=== PATIENT | male | born 1945 | race Caucasian/White ===

== ENCOUNTER 2022-01-17 06:07 | Inpatient (IN) ==
--- NOTE | 2021-12-22 08:59 | PAT Medication Instructions ---
Medication Instructions Date of Service December 22, 2021 Home Medications carvedilol 3.125 mg tablet 3.125 mg PO BID metformin 1,000 mg tablet 500 mg PO BID omeprazole 20 mg capsule,delayed release 20 mg PO QPM simvastatin 20 mg tablet 20 mg PO PM diphenhydramine HCl 25 mg capsule (Benadryl) 1 cap PO HS hydrochlorothiazide 25 mg tablet 25 mg PO QAM lisinopril 40 mg tablet 40 mg PO QAM ascorbic acid (vitamin C) 1,000 mg tablet (Vitamin C) 1 g PO QAM ferrous sulfate 325 mg (65 mg iron) tablet (iron) 1 tab PO QAM levothyroxine 25 mcg capsule 75 mcg PO QAM cholecalciferol (vitamin D3) 25 mcg (1,000 unit) capsule (Vitamin D3) 25 mcg PO QAM glipizide 2.5 mg tablet, extended release 24 hr 2.5 mg PO BID methocarbamol 750 mg tablet 750 mg PO HS semaglutide (Ozempic) 0.25 mg SUBCUT WK tramadol 50 mg tablet 50 mg PO Q6H PRN vitamin B complex 1 tab PO QAM Continue as directed semaglutide (Ozempic) 0.25 mg SUBCUT WK (just do not take on morning of surgery) DO NOT take the morning of surgery metformin 1,000 mg tablet 500 mg PO BID hydrochlorothiazide 25 mg tablet 25 mg PO QAM lisinopril 40 mg tablet 40 mg PO QAM ascorbic acid (vitamin C) 1,000 mg tablet (Vitamin C) 1 g PO QAM ferrous sulfate 325 mg (65 mg iron) tablet (iron) 1 tab PO QAM cholecalciferol (vitamin D3) 25 mcg (1,000 unit) capsule (Vitamin D3) 25 mcg PO QAM glipizide 2.5 mg tablet, extended release 24 hr 2.5 mg PO BID vitamin B complex 1 tab PO QAM Take morning of surgery With a small sip of water, OTHERWISE NOTHING TO EAT OR DRINK AFTER MIDNIGHT: carvedilol 3.125 mg tablet 3.125 mg PO BID levothyroxine 25 mcg capsule 75 mcg PO QAM tramadol 50 mg tablet 50 mg PO Q6H PRN (okay to take up to 4 hours prior to surgery if needed) Take evening before surgery carvedilol 3.125 mg tablet 3.125 mg PO BID metformin 1,000 mg tablet 500 mg PO BID omeprazole 20 mg capsule,delayed release 20 mg PO QPM simvastatin 20 mg tablet 20 mg PO PM diphenhydramine HCl 25 mg capsule (Benadryl) 1 cap PO HS glipizide 2.5 mg tablet, extended release 24 hr 2.5 mg PO BID methocarbamol 750 mg tablet 750 mg PO HS tramadol 50 mg tablet 50 mg PO Q6H PRN (if needed) Other Notes If you have any questions please call us at [phone] or [phone] or [phone] or [phone]
--- NOTE | 2021-12-27 13:46 | Anesthesiology Consultation ---
Date of Service December 27, 2021 Assessment & Plan (1) Encounter for pre-operative examination: - check BSG am DOS. - will attempt to obtain previous cardiology office note and available testing records. - COVID screening: Per assessment on 12/27/2021: Travel screen negative, no known COVID-19 positive contacts or current COVID-19 related symptoms in past 2 weeks. Patient vaccinated. Surgeon arranging preop COVID testing, scheduled 01/13/2022. Awaiting results. Chart Review Chart Review: Pending: Refer to Additional Notes / Consult section and Patient seen in Pre Admission Testing Teaching & Discussion Pre-Anesthesia Teaching/Discussion Notes: Instructed NPO after midnight before surgery, except medications with 15 cc of water. Medication instructions provid ed according to the PAT guidelines. History Surgery Operation Date: 01/17/22 12:35 Proposed Procedures p Posterior Fusion Instrumentation - Emmett Abdalla, Height/Weight Height: 5 ft 7 in Weight: 90.5 kg Allergies Allergy/AdvReac Type Severity Reaction Status Date / Time hydrocodone Allergy Unknown ITCHING Verified 12/21/21 14:22 AND RASH oxycodone Allergy Unknown NAUSEA, Verified 12/21/21 14:22 ITCHING, RASH Penicillins Allergy Unknown per PCP Verified 12/21/21 14:22 note shrimp Allergy Unknown NAUSEA AND Verified 12/21/21 14:22 VOMITING Medications Home Medications Medication Instructions Recorded Confirmed Last Taken carvedilol 3.125 mg tablet 3.125 mg PO BID #0 tab 12/18/14 12/21/21 08/07/18 06:30 metformin 1,000 mg tablet 500 mg PO BID #0 tab 12/18/14 12/21/21 08/06/18 19:30 omeprazole 20 mg capsule,delayed 20 mg PO QPM #0 12/18/14 12/21/21 08/06/18 06:30 release simvastatin 20 mg tablet 20 mg PO PM #0 tab 12/18/14 12/21/21 08/06/18 07:30 diphenhydramine HCl 25 mg capsule 1 cap PO HS #0 03/25/15 12/21/21 07/31/18 22:30 (Benadryl) hydrochlorothiazide 25 mg tablet 25 mg PO QAM #0 tab 03/25/15 12/21/21 08/06/18 07:30 lisinopril 40 mg tablet 40 mg PO QAM #0 tab 03/25/15 12/21/21 07/30/18 07:30 ascorbic acid (vitamin C) 1,000 mg 1 g PO QAM 07/10/18 12/21/21 07/31/18 07:30 tablet (Vitamin C) ferrous sulfate 325 mg (65 mg 1 tab PO QAM 07/10/18 12/21/21 08/06/18 22:30 iron) tablet (iron) levothyroxine 25 mcg capsule 75 mcg PO QAM 07/10/18 12/21/21 08/07/18 06:30 cholecalciferol (vitamin D3) 25 25 mcg PO QAM 12/21/21 12/21/21 Unknown mcg (1,000 unit) capsule (Vitamin D3) glipizide 2.5 mg tablet, extended 2.5 mg PO BID 12/21/21 12/21/21 Unknown release 24 hr methocarbamol 750 mg tablet 750 mg PO HS 12/21/21 12/21/21 Unknown semaglutide (Ozempic) 0.25 mg SUBCUT WK 12/21/21 12/21/21 Unknown tramadol 50 mg tablet 50 mg PO Q6H PRN 12/21/21 12/21/21 Unknown vitamin B complex 1 tab PO QAM 12/21/21 12/21/21 Unknown Past Medical History Medical History (Updated 12/27/21 @ 16:25 by Shelley Lala PA-C) BPH (benign prostatic hyperplasia) Chronic back pain CKD (chronic kidney disease) stage 3, GFR 30-59 ml/min follows with [facility] in [place] Degenerative disc disease GERD (gastroesophageal reflux disease) controlled, stable per pt Glaucoma History of atrial fibrillation follows with Dr. Carroll in [place] HLD (hyperlipidemia) HTN (hypertension) controlled, stable per pt Hypothyroid Lumbar stenosis without neurogenic claudication (12/30/14) Obesity Prostate cancer (02/25/15) "Urinary retention post back surgery Finding of elevated PSA at 5.23 Status post prostate biopsy revealing adenocarcinoma Jackie 3+3 Biopsy staged T2b Prostate volume 34.9 Prostate density 0.149" T2DM (type 2 diabetes mellitus) NIDDM Valvular disease Probable bicuspid AV. Mild [place]. Mild [place]. Patient denies h/o stroke, seizures, heart attack, heart failure, blood clots or blood transfusions. Exercise / Class Metabolic Activity II 4-5 Yardwork/Stairs/Walk up hill (denies CP or SOB with 1 FOS) Past Family History Family History Other No family history of adverse response to anesthesia Past Surgical History Surgical History (Updated 12/27/21 @ 14:33 by Shelley Lala PA-C) Fusion of spine BACK AND CERVICAL (limited ROM side to side) History of arthroscopic surgery of shoulder History of cardiac catheterization - no stents History of carpal tunnel release History of cataract surgery BILATERAL CATARACT History of cervical spinal surgery History of discectomy History of lumbar surgery 08/08/2018: L3-S1 Removal of Instrumentation, L2-3 Decompression and Fusion. Grade 1 view, MAC#3. No issues per anesthesia postop progress note. History of nasal septoplasty History of prostatectomy 2014 History of shoulder replacement Nausea and vomiting after administration of anesthetic agent Past Anesthesia History No Hx of Anesthesia Complications and No Family Hx of Anesthesia Complications History of PONV No Hx of Motion Sickness and History of PONV Social History Smoking Status: Former smoker Do You Dip or Chew Tobacco: No Smoking End Date: quit 30+ years ago Hx Alcohol Use: No Hx Substance Use: No substance use type: does not use Review of Systems Snoring, denies witnessed apneas. He reports sleep study > 5 yrs ago negative for sleep apnea per pt. Patient denies chest pain, shortness of breath, dyspnea on exertion, fever, chills, cough, wheezing, or palpitations. Physical Exam Vital Signs Vitals BP 123/80 P 66 TEMP 98.0 SP02 96% on RA RESP 17 Physical Full cervical extension range of motion without pain Full TMJ range of motion TMD 3.5 finger breaths Mallampati Score 3 Dentition: intact, missing right upper and lower side; denies chipped or loose teeth, caps/crowns, implants or bridges Lungs: normal respiratory effort. Clear throughout to auscultation, no adventitious breath sounds Cardiac: regular rate and rhythm, no murmurs noted Carotid arteries: negative bruit bilat Extremities: no distal extremity edema Lab Results Anesthesia Preop Results Results Anesthesia Widget: WBC 10.60 K/uL (4.8-10.8) 12/27/21 Hgb 15.9 g/dL (14.0-18.0) 12/27/21 Hct 47.8 % (42-52) 12/27/21 Plt 343 K/uL (130-400) 12/27/21 Na 138 mmol/L (136-145) 12/27/21 K 4.0 mmol/L (3.5-5.1) 12/27/21 Cl 105 mmol/L (98-107) 12/27/21 CO2 25 mmol/L (21-32) 12/27/21 BUN 17 mg/dl (6-23) 12/27/21 Creat 1.29 mg/dl (0.6-1.4) 12/27/21 Glucose Level 132 mg/dl (70-99(Fasting)) H 12/27/21 PT 9.9 Seconds (9.0-12.0) 12/27/21 PTT 24.8 Seconds (21.0-31.0) 12/27/21 INR 1.0 (0.9-1.1) 12/27/21 HA1c 6.7 % (4.5-5.6) H 12/27/21 Urine Color Yellow 12/27/21 Urine Appearance Clear (Clear) 12/27/21 Urine pH 5.0 (4.5-7.5) 12/27/21 Urine Specific [place] 1.019 (1.000-1.030) 12/27/21 Urine Protein Negative (Negative) 12/27/21 Urine Glucose (UA) Negative (Negative) 12/27/21 Urine Ketones Negative (Negative) 12/27/21 Urine Blood Negative (Negative) 12/27/21 Urine Nitrite Negative (Negative) 12/27/21 Urine Bilirubin Negative (Negative) 12/27/21 Urine Urobilinogen Negative (Negative) 12/27/21 Urine Leukocyte Esterase Negative (Negative) 12/27/21 Blood Type A Positive 12/27/21 Antibody Screen NEGATIVE 12/27/21 Testing Electrocardiogram Date: 12/27/21 NSR, rate 63 bpm RBBB Chest X-Ray Date: 12/27/21 FINDINGS: Cervical spinal fusion hardware is again noted. There is a right total shoulder arthroplasty. No pneumothorax. No pleural effusions. The heart is normal in size. There is a mildly tortuous thoracic aorta, unchanged. The lungs are clear. Partially visualized lumbar spinal fusion hardware. Mild degenerative changes within the thoracic spine. IMPRESSION: No significant change compared to the prior study. No acute process.
[~2022-01-17 06:07] MED LIST: CLINDAMYCIN 600 MG/54 ML BAG IV SCH; CeleBREX 200 MG CAP PO SCH; GABAPENTIN 300 MG CAP PO SCH; LR 15ML/HR IV SCH
[2022-01-17] MEDS ORDERED: SUGAMMADEX SODIUM 200 MG/2 ML VIAL IV ONE (06:30)
[2022-01-17] MEDS ORDERED: MIDAZOLAM HCL 1 MG/ML 2ML VIAL ONE (06:35)
[2022-01-17] MEDS ORDERED: HYDROmorphone INJ 2 MG/ML SYR/VIAL ONE (06:36)
[2022-01-17] MEDS ORDERED: ePHEDrine sulfate 50 MG/ML AMP IV PRN (07:05)
[2022-01-17] MEDS ORDERED: fentaNYL citrate 100 MCG/2 ML VIAL IV PRN (07:05)
[2022-01-17] MEDS ORDERED: HYDROmorphone INJ 1 MG/ML SYRINGE IV PRN (07:05)
[2022-01-17] MEDS ORDERED: ONDANSETRON INJ 2 MG/ML 2 ML VIAL IV PRN ×2 (07:05→11:37)
[2022-01-17] MEDS ORDERED: ATROPINE SULFATE 0.1 MG/ML 10ML SYR IV PRN (07:05)
[2022-01-17] MEDS ORDERED: SCOPOLAMINE 1 MG TDSY TD ONE ×2 (07:10→07:14)
[2022-01-17] MEDS ORDERED: ALBUMIN HUMAN 5% 12.5 GM/250 ML VIAL IV ONE (07:18)
--- NOTE | 2022-01-17 07:32 | History & Physical Report ---
Date of Service January 17, 2022 Assessment & Plan (1) Neurogenic claudication due to lumbar spinal stenosis: Plan: T12-L3 decompression and fusion, L2-L3 hardware removal History of Present Illness Chief Complaint: Back and bilateral leg pain Primary Care Provider: Greg Lake This is a 76-year-old male presents with chronic persistent back and leg pain after failing course of nonoperative care is here for surgical invention. Allergies Allergy/AdvReac Type Severity Reaction Status Date / Time hydrocodone Allergy Unknown ITCHING Verified 01/17/22 06:33 AND RASH oxycodone Allergy Unknown NAUSEA, Verified 01/17/22 06:33 ITCHING, RASH Penicillins Allergy Unknown per PCP Verified 01/17/22 06:33 note shrimp Allergy Unknown NAUSEA AND Verified 01/17/22 06:33 VOMITING Home Medications Medication Instructions Recorded Confirmed Type carvedilol 3.125 mg tablet 3.125 mg PO BID #0 tab 12/18/14 01/17/22 History metformin 1,000 mg tablet 500 mg PO BID #0 tab 12/18/14 01/17/22 History omeprazole 20 mg capsule,delayed 20 mg PO QPM #0 12/18/14 01/17/22 History release simvastatin 20 mg tablet 20 mg PO PM #0 tab 12/18/14 01/17/22 History diphenhydramine HCl 25 mg capsule 1 cap PO HS #0 03/25/15 01/17/22 History (Benadryl) hydrochlorothiazide 25 mg tablet 25 mg PO QAM #0 tab 03/25/15 01/17/22 History lisinopril 40 mg tablet 40 mg PO QAM #0 tab 03/25/15 01/17/22 History ascorbic acid (vitamin C) 1,000 mg 1 g PO QAM 07/10/18 01/17/22 History tablet (Vitamin C) ferrous sulfate 325 mg (65 mg 1 tab PO QAM 07/10/18 01/17/22 History iron) tablet (iron) levothyroxine 25 mcg capsule 75 mcg PO QAM 07/10/18 01/17/22 History cholecalciferol (vitamin D3) 25 25 mcg PO QAM 12/21/21 01/17/22 History mcg (1,000 unit) capsule (Vitamin D3) glipizide 2.5 mg tablet, extended 2.5 mg PO BID 12/21/21 01/17/22 History release 24 hr methocarbamol 750 mg tablet 750 mg PO HS 12/21/21 01/17/22 History semaglutide (Ozempic) 0.25 mg SUBCUT WK 12/21/21 01/17/22 History tramadol 50 mg tablet 50 mg PO Q6H PRN 12/21/21 01/17/22 History vitamin B complex 1 tab PO QAM 12/21/21 01/17/22 History Past Med/Surg History Medical History (Updated 01/17/22 @ 07:31 by Emmett Abdalla, ) BPH (benign prostatic hyperplasia) Chronic back pain CKD (chronic kidney disease) stage 3, GFR 30-59 ml/min follows with [facility] in [place] Degenerative disc disease GERD (gastroesophageal reflux disease) controlled, stable per pt Glaucoma History of atrial fibrillation follows with Dr. Carroll in [place] HLD (hyperlipidemia) HTN (hypertension) controlled, stable per pt Hypothyroid Lumbar stenosis without neurogenic claudication (12/30/14) Obesity Prostate cancer (02/25/15) "Urinary retention post back surgery Finding of elevated PSA at 5.23 Status post prostate biopsy revealing adenocarcinoma Jackie 3+3 Biopsy staged T2b Prostate volume 34.9 Prostate density 0.149" T2DM (type 2 diabetes mellitus) NIDDM Valvular disease Probable bicuspid AV. Mild [place]. Mild [place]. Surgical History Fusion of spine BACK AND CERVICAL (limited ROM side to side) History of arthroscopic surgery of shoulder History of cardiac catheterization - no stents History of carpal tunnel release History of cataract surgery BILATERAL CATARACT History of cervical spinal surgery History of discectomy History of lumbar surgery 08/08/2018: L3-S1 Removal of Instrumentation, L2-3 Decompression and Fusion. Grade 1 view, MAC#3. No issues per anesthesia postop progress note. 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
[2022-01-17] MEDS ORDERED: ceFAZolin 330 MG/ML 1 GM VIAL ONE (07:34)
[2022-01-17] MEDS ORDERED: BUPIVACAINE/EPINEPHRINE 0.25% 1:200,000 30 ML VIAL ONE (07:34)
[2022-01-17] MEDS ORDERED: CLINDAMYCIN 600 MG/54 ML D5W IV ONE (07:38)
[2022-01-17] MEDS ORDERED: LIDOCAINE 2% 2 ML VIAL/AMP(20MG/ML) INFIL ONE (08:03)
[2022-01-17] MEDS ORDERED: GLYCOPYRROLATE 0.2 MG/ML VIAL ONE (08:03)
[2022-01-17] MEDS ORDERED: DEXAMETHASONE SOD INJ 4 MG/ML VIAL ONE (08:03)
[2022-01-17] MEDS ORDERED: ONDANSETRON INJ 2 MG/ML 2 ML VIAL ONE (08:03)
[2022-01-17] MEDS ORDERED: ROCURONIUM BROMIDE 10 MG/ML 5 ML VIAL IV ONE (08:03)
[2022-01-17] MEDS ORDERED: KETOROLAC 30 MG/ML VIAL ONE (08:03)
[2022-01-17] MEDS ORDERED: ePHEDrine sulfate 50 MG/ML AMP ONE (08:03)
[2022-01-17] MEDS ORDERED: PROPOFOL IV EMULSION 10 MG/ML 20 ML VIAL IV ONE (08:03)
[2022-01-17] MEDS ORDERED: FLOSEAL HEMOSTATIC MATRIX 10ML TOP ONE (08:11)
--- NOTE | 2022-01-17 09:41 | Operative Report ---
Post Operative Report Pre & Post Diagnosis Operation Date: 01/17/22 07:45 Pre-Op Diagnosis: Intervertebral disc disorders with radiculopathy Post-Op Diagnosis: Intervertebral disc disorders with radiculopathy I identified the patient and participated in the time-out.: Yes Procedure Operation Date: 01/17/22 07:45 Actual Procedures Removal of posterior instrumentation L2-L3. #2 exploration of fusion L2-L3. #3 lumbar decompression with bilateral medial facetectomies and foraminotomies T12- L1 L1-L2. #4 posterior spinal fusion T12-L2. #5 placement posterior instrumentation T12-L3. #6 interbody fusion L1-L2. #7 placement peek cage 10 x 26 mm at L1-L2. #8 placement locally harvested morselized autograft in the posterior gutters. Midline placement of infuse collagen sponge and master graft in the posterior lateral gutters and I factor interbody space. Surgeon Emmett Abdalla, Skills Auditor Lilliana Felix Estimated Blood Loss 150 Findings Consistent with Post-Op Diagnosis Specimens None Indications This is a 76-year-old male who presents above-mentioned diagnosis after failing since course of nonoperative care is here for surgical invention. Description of Procedure Patient was met with identified informed consent obtained. Patient was then taken to the operative suite underwent ablation placed in a prone position the Brandan table Brad frame. All bony prominences well-padded eyes inspected to ensure no external pressure placed upon. At this point the thoracolumbar spine was prepped and draped in normal sterile fashion. Sharp dissection with the assistance of Bovie cautery was performed down to and exposing the lamina and transverse processes of T12-L1 and instrumentation at L2-L3 bilaterally. Then proceeded to remove the hardware bilaterally explore the fusion mass noting it to be mature and intact. Informed complete laminectomy L1 partial laminectomy of T12 including bilateral medial facetectomies and foraminotomies addressing severe spinal stenosis. Pedicle screws then placed in T12 L1-L2-L3 bilaterally with assistance of fluoroscopy and proper sized ney placed. By way of transfer approach on the right complete discectomy was performed endplates curetted to subcortically bone and a 10 x 26 mm peek cage filled with I factor tapped in pos ition. The rods then compressed locked into final position bilaterally. The transverse processes of T12 L1-L2 burred to subcortically bone. Infuse collagen sponge master graft local graft was placed in posterior gutters. 15 round YINA drain inserted. The incision was then closed with 1 Vicryl the fascia 2-0 Vicryl subcutaneously and 4 Monocryl for final skin closure. Steri-Strip sterile dressings placed. Patient waken taken PACU stable condition. Please note spinal cord monitoring visualized at the procedure no changes noted. Lastly Lilliana Felix was present at the entire surgery and while the patient positioning complex portions of the surgery and fascial closure. I attest to the content of the Intraoperative Record and any orders documented therein. Any exceptions are noted below.
--- NOTE | 2022-01-17 09:52 | Fluoroscopy Report ---
FL lumbar spine 2-3V CLINICAL HISTORY: L2-3 REMOVE HARDWARE T12-L3 D/F/I TECHNIQUE: 2 views were obtained with the C-arm in the OR with the above procedure. Total fluoroscopy time was 18.4 seconds. Total skin dose was 10.63 mGy. Comparison: None available at the time of this dictation. FINDINGS/IMPRESSION: Intraoperative images were obtained of lumbar spine hardware removal. Please correlate with intraoperative fluoroscopy and operative report. ACT 112: Negative or not required by law. Electronically signed by: Dimitri Schumacher M.D. 01/17/2022 9:50 AM
[2022-01-17] MEDS ORDERED: ACETAMINOPHEN 1,000 MG/100 ML VIAL IV PRN (11:37)
[2022-01-17] MEDS ORDERED: NALOXONE HCL 0.4 MG/1 ML VIAL/CARP IV PRN (11:37)
[2022-01-17] MEDS ORDERED: PROMETHAZINE HCL 12.5 MG in SODIUM CHLORIDE 0.9% 50 ML IV PRN (11:37)
[2022-01-17] MEDS ORDERED: diphenhydrAMINE Capsule 25 MG CAP PO PRN (11:37)
[2022-01-17] MEDS ORDERED: MAGNESIUM HYDROXIDE SUSP 30 ML UDC PO PRN (11:37)
[2022-01-17] MEDS ORDERED: DO NOT ADMINISTER FLU VACCINE PRN (11:37)
[2022-01-17] MEDS ORDERED: FAMOTIDINE 20 MG TAB PO PRN (11:37)
[2022-01-17] MEDS ORDERED: HYDROmorphone INJ 0.5 MG/0.5 ML SYR IV PRN (11:37)
[2022-01-17] MEDS ORDERED: bisacodyL 10 MG SUPP PR PRN (11:37)
[2022-01-17] MEDS ORDERED: ONDANSETRON 4 MG OD TAB PO PRN (11:37)
[2022-01-17] MEDS ORDERED: hydrOXYzine HCl 25 MG TAB PO PRN (11:37)
[2022-01-17] MEDS ORDERED: LORazepam 2 MG/1 ML VIAL IV PRN (11:37)
[2022-01-17] MEDS ORDERED: METOCLOPRAMIDE HCL INJ 5 MG/ML 2 ML VIAL IV PRN (11:37)
[2022-01-17] MEDS ORDERED: ALUMINUM/MAGNESIUM SUSP 30 ML UDC PO PRN (11:37)
[2022-01-17] MEDS ORDERED: PHARMACY GLYCEMIC MGMT CONSULT PRN (11:37)
[2022-01-17] MEDS ORDERED: SOD PHOSPHATE/SOD BIPHOSPHATE ENEMA 132 ML BTL PR PRN (11:37)
[2022-01-17] MEDS ORDERED: DO NOT ADMINISTER PNEUMOCOCCAL VACCINE PRN (11:37)
[2022-01-17] MEDS ORDERED: LORazepam 0.5 MG TAB PO PRN (11:37)
--- NOTE | 2022-01-17 12:11 | Hospitalist Consultation ---
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 Parekh is a 76 year old male with a history of Hypertension, Hyperlipidemia, Type 2 DM, Stage 3 CKD, Hypothyroidism, Prostate Cancer s/p Prostatectomy, RBBB, Functionally Bicuspid Aortic Valve, Mild AI, Mild PI, and Lumbar Spinal Stenosis who POD#0 from a T12 to L3 decompression and fusion with Dr. Abdalla. No surgical or anesthetic complications reported. He complains of surgical back pain at the present time -- rating it at an 8/10. He denies any radicular pain in his legs. Surgical drain is in place. He is hemodynamically stable at this time and he is otherwise asymptomatic. -- Opiate analgesics as needed for pain control. -- Tramadol 50 to 100 mg every 4 hours as needed. -- Dexamethasone IV 6 mg daily. -- DVT prophylaxis. -- TEDS stockings, SCD's. -- CBC with diff, BMP in the morning. -- Physical therapy has been ordered. -- Ambulation as tolerated. (3) HTN (hypertension): BP appears to be controlled. -- Continue Coreg 3.125 mg b.i.d.. -- Resume Lisinopril 40 mg in the morning if BP allows. (4) HLD (hyperlipidemia): -- Continue Simvastatin 20 mg daily. (5) T2DM (type 2 diabetes mellitus): Type 2 DM, BSG at 12:31 pm today was 161 mg/dL. -- Hold Metformin. -- Hold Ozempic. -- BSG qAC and HS. -- Sliding scale insulin coverage. (6) Bicuspid aortic valve: Functionally Bicuspid Aortic Valve on Echocardiogram 2017 showed Normal LV systolic function, LVEF 50% to 55% with Mild AI, Mild PI, Trace MR, Trace TR. Aortic root is enlarged, ascending aorta measures 4.0 cm. Patient's last Stress Echocardiogram was performed in 2019. He exercised for 6 minutes on standard Hiro protocol attaining a 7 MET workload and 81% MPHR. No exercised induced chest discomfort. No evidence of myocardial ischemia by echo criteria. -- Continue to follow with Dr Carroll, continue surveillance echocardiograms periodically. (7) CKD (chronic kidney disease) stage 3, GFR 30-59 ml/min: -- CKD, pre-op labs 12/27/21 show a serum Creatinine of 1.29 mg/dL with a BUN of 17 mg/dL. -- Avoid nephrotoxic drugs. -- Avoid dehydration. -- Check BMP tomorrow morning. Supervising Physician Co-Signing Physician Notes Patient was seen and examined independently I discussed the case with Amie Lee I reviewed pertinent past medical social family history and also the plan of care and agree with the plan of care. Patient was seen status post lumbar spinal surgery resting comfortably in his room only having some pain at the site of surgery Cardiac exam is regular lungs are clear we will continue to treat the patient for his medical problems which include chronic kidney disease diabetes and hypertension. Hold his typical diabetic regiment in favor of sliding scale insulin Any exceptions will be noted below History of Present Illness Reason for Consultation: -- Post-op Medical Management. Requesting Physician: Emmett Abdalla DO Attending Physician: Jorge Stearns MD History of Present Illness Mr. Parekh is a 76 year old male with a history of Hypertension, Hyperlipidemia, Type 2 DM, Stage 3 CKD, Hypothyroidism, Prostate Cancer s/p Prostatectomy, RBBB, Functionally Bicuspid Aortic Valve, Mild AI, Mild PI, and Lumbar Spinal Stenosis who underwent T12 to L3 decompression and fusion with Dr. Abdalla earlier today. No surgical or anesthetic complications. Patient complains of surgical back pain at the present time -- rating it at an 8/10. He denies any radicular pain in his legs. Patient states that he is normally a very active person, but he has recently been more limited because of his limited standing and walking tolerance. Patient has not had any limiting cardiopulmonary symptoms at any time. He specifically denies any exertional chest pain, heaviness, tightness, pressure, or discomfort. He denies any exertional neck, jaw, back, arm pain. He denies any shortness of breath, u nusual dyspnea on exertion, orthopnea, or PND. He denies any palpitations, syncope, or near syncope. His Geographic Information Systems Manager is Dr. Bradly Carroll. Patient's last stress echocardiogram was performed in 2019. He exercised for 6 minutes on standard Hiro protocol attaining a 7 met workload and 81% MPHR. No exercised induced chest discomfort. No evidence of myocardial ischemia by echo criteria. Patient has not had any nausea, vomiting, or change in bowel habits. He has not had any urinary or fecal incontinence. He denies any recent fevers, chills, or illnesses. Patient a former smoker. He quit smoking in 1988, after smoking for 20 years. He is a retired industrial maintenance electrician. He lives with his in [place], [place]. Allergies Allergy/AdvReac Type Severity Reaction Status Date / Time hydrocodone Allergy Unknown ITCHING Verified 01/17/22 06:33 AND RASH oxycodone Allergy Unknown NAUSEA, Verified 01/17/22 06:33 ITCHING, RASH Penicillins Allergy Unknown per PCP Verified 01/17/22 06:33 note shrimp Allergy Unknown NAUSEA AND Verified 01/17/22 06:33 VOMITING Home Medications Medication Instructions Recorded Confirmed Type carvedilol 3.125 mg tablet 3.125 mg PO BID #0 tab 12/18/14 01/17/22 History metformin 1,000 mg tablet 500 mg PO BID #0 tab 12/18/14 01/17/22 History omeprazole 20 mg capsule,delayed 20 mg PO QPM #0 12/18/14 01/17/22 History release simvastatin 20 mg tablet 20 mg PO PM #0 tab 12/18/14 01/17/22 History diphenhydramine HCl 25 mg capsule 1 cap PO HS #0 03/25/15 01/17/22 History (Benadryl) hydrochlorothiazide 25 mg tablet 25 mg PO QAM #0 tab 03/25/15 01/17/22 History lisinopril 40 mg tablet 40 mg PO QAM #0 tab 03/25/15 01/17/22 History ascorbic acid (vitamin C) 1,000 mg 1 g PO QAM 07/10/18 01/17/22 History tablet (Vitamin C) ferrous sulfate 325 mg (65 mg 1 tab PO QAM 07/10/18 01/17/22 History iron) tablet (iron) levothyroxine 25 mcg capsule 75 mcg PO QAM 07/10/18 01/17/22 History cholecalciferol (vitamin D3) 25 25 mcg PO QAM 12/21/21 01/17/22 History mcg (1,000 unit) capsule (Vitamin D3) glipizide 2.5 mg tablet, extended 2.5 mg PO BID 12/21/21 01/17/22 History release 24 hr methocarbamol 750 mg tablet 750 mg PO HS 12/21/21 01/17/22 History semaglutide (Ozempic) 0.25 mg SUBCUT WK 12/21/21 01/17/22 History tramadol 50 mg tablet 50 mg PO Q6H PRN 12/21/21 01/17/22 History vitamin B complex 1 tab PO QAM 12/21/21 01/17/22 History tramadol 50 mg tablet 50 mg PO Q6H PRN #30 tab 01/17/22 Rx Patient History Medical History BPH (benign prostatic hyperplasia) Chronic back pain CKD (chronic kidney disease) stage 3, GFR 30-59 ml/min follows with [facility] in [place] Degenerative disc disease GERD (gastroesophageal reflux disease) controlled, stable per pt Glaucoma HLD (hyperlipidemia) HTN (hypertension) controlled, stable per pt Hypothyroid Lumbar stenosis without neurogenic claudication (12/30/14) Obesity Prostate cancer (02/25/15) "Urinary retention post back surgery Finding of elevated PSA at 5.23 Status post prostate biopsy revealing adenocarcinoma Jackie 3+3 Biopsy staged T2b Prostate volume 34.9 Prostate density 0.149" T2DM (type 2 diabetes mellitus) NIDDM Valvular disease Probable bicuspid AV. Mild AR. Mild MT. Surgical History Fusion of spine BACK AND CERVICAL (limited ROM side to side) History of arthroscopic surgery of shoulder History of cardiac catheterization - no stents History of carpal tunnel release History of cataract surgery BILATERAL CATARACT History of cervical spinal surgery History of discectomy History of lumbar surgery 08/08/2018: L3-S1 Removal of Instrumentation, L2-3 Decompression and Fusion. Grade 1 view, MAC#3. No issues per anesthesia postop progress note. History of nasal septoplasty History of prostatectomy 2014 History of shoulder replacement Nausea and vomiting after administration of anesthetic agent Family History Other No family history of adverse response to anesthesia Social History Smoking Status: Former smoker Smoking End Date: quit 30+ years ago; Second Hand Exposure: No; Do You Dip or Chew Tobacco: No; Tobacco Cessation Education Requested by Patient: No Hx Alcohol Use: No Hx Substance Use: No Preferred Language: Eritrean Communication Ability: Effective Welfare Visitor Required: No Beliefs That Will Affect Care: None Current Living Situation: Spouse Feels Safe at Home: Yes Safety Concerns: Feels Safe At This Time Assistive Devices: Walker Review of Systems Review of Systems: Ten point review of systems was completed and is negative with the exception of what is mentioned in the HPI. Physical Exam Physical Exam: Vital signs are stable GENERAL: Patient appears uncomfortable, sitting in a semi recumbent position in his hospital bed. HEENT: Head is atraumatic, normocephalic. EOM's intact. Facies symmetric. No perioral cyanosis. NECK: No JVD. JVP is not elevated. Carotid upstrokes are + 2 bilaterally without obvious bruits CHEST/LUNGS: Clear to auscultation throughout all lung ramierz. No wheezes, rales, or crackles. CVS: S1 and S2 are regular with a grade 2/6 systolic ejection murmur present at the left sternal border, and audible at the apex. No obvious diastolic murmurs. No gallops or rubs. PMI is nondisplaced. No lifts, heaves, or thrills. No abdominal aortic or renal bruits. ABDOMINAL EXAM: Bowel sounds are present. No masses, organomegaly, or tenderness. EXTREMITIES: No clubbing or cyanosis. No edema. Intact dorsalis pedis and radial pulses bilaterally. NEUROLOGIC EXAM: Patient is awake, alert, and oriented. Pleasant and cooperative. Answers questions appropriately. Speech is clear. Gait pattern was not assessed. EKG 12/27/21: -- NSR at 63 bpm, RBBB is present. -- Compared to EKG 07/17/2018; right bundle branch block is now present. Results & Data Results & Data ([facility]) Vital Signs (Past 12 Hours) Vital Signs Temp Pulse Pulse Resp BP BP Pulse Ox 01/17/22 12:04 36.4 C L 71 16 117/76 94 01/17/22 11:35 36.5 C 71 16 110/71 91 01/17/22 10:56 36.5 C 76 113/75 92 01/17/22 10:45 76 18 111/78 97 01/17/22 10:35 36.4 C L 81 18 110/80 97 01/17/22 10:25 78 12 111/72 98 01/17/22 10:15 78 12 114/73 99 01/17/22 10:05 80 14 112/73 99 01/17/22 09:55 36.3 C L 83 14 132/74 96 01/17/22 06:40 37 C 64 20 140/94 96 Laboratory Results Laboratory Results - last 24 hr 01/17/22 01/17/22 01/17/22 06:24 06:32 06:37 POC Glucose 112 H SARS-CoV-2, RNA, NAAT NEGATIVE Blood Type A Positive Antibody Screen NEGATIVE 01/17/22 09:57 POC Glucose 146 H SARS-CoV-2, RNA, NAAT Blood Type Antibody Screen Diagnostic Findings XRAY Spine 01/17/22: 2 views were obtained with the C-arm in the OR with the above procedure. Total fluoroscopy time was 18.4 seconds. Total skin dose was 10.63 mGy. Comparison: None available at the time of this dictation. FINDINGS/IMPRESSION: -- Intraoperative images were obtained of lumbar spine hardware removal. CXR 12/27/21: Cervical spinal fusion hardware is again noted. There is a right total shoulder arthroplasty. No pneumothorax. No pleural effusions. The heart is normal in size. There is a mildly tortuous thoracic aorta, unchanged. The lungs are clear. Partially visualized lumbar spinal fusion hardware. Mild degenerative changes within the thoracic spine. IMPRESSION: No significant change compared to the prior study. No acute process. Medications Administered Medications carvedilol 3.125 mg tablet 3.125 mg PO BID #0 tab 12/18/14 [History Confirmed 01/17/22] metformin 1,000 mg tablet 500 mg PO BID #0 tab 12/18/14 [History Confirmed 01/17/22] omeprazole 20 mg capsule,delayed release 20 mg PO QPM #0 12/18/14 [History Confirmed 01/17/22] simvastatin 20 mg tablet 20 mg PO PM #0 tab 12/18/14 [History Confirmed 01/17/22] diphenhydramine HCl 25 mg capsule (Benadryl) 1 cap PO HS #0 03/25/15 [History Confirmed 01/17/22] hydrochlorothiazide 25 mg tablet 25 mg PO QAM #0 tab 03/25/15 [History Confirmed 01/17/22] lisinopril 40 mg tablet 40 mg PO QAM #0 tab 03/25/15 [History Confirmed 01/17/22] ascorbic acid (vitamin C) 1,000 mg tablet (Vitamin C) 1 g PO QAM 07/10/18 [History Confirmed 01/17/22] ferrous sulfate 325 mg (65 mg iron) tablet (iron) 1 tab PO QAM 07/10/18 [History Confirmed 01/17/22] levothyroxine 25 mcg capsule 75 mcg PO QAM 07/10/18 [History Confirmed 01/17/22] cholecalciferol (vitamin D3) 25 mcg (1,000 unit) capsule (Vitamin D3) 25 mcg PO QAM 12/21/21 [History Confirmed 01/17/22] glipizide 2.5 mg tablet, extended release 24 hr 2.5 mg PO BID 12/21/21 [History Confirmed 01/17/22] methocarbamol 750 mg tablet 750 mg PO HS 12/21/21 [History Confirmed 01/17/22] semaglutide (Ozempic) 0.25 mg SUBCUT WK 12/21/21 [History Confirmed 01/17/22] tramadol 50 mg tablet 50 mg PO Q6H PRN 12/21/21 [History Confirmed 01/17/22] vitamin B complex 1 tab PO QAM 12/21/21 [History Confirmed 01/17/22] Home Medications Acetaminophen (Acetaminophen 500 Mg Tab) 1,000 mg PO Q8H PRN PRN Reason: MILD Pain Scale 1,2,3 & Pre PT Stop: 02/16/22 11:36 Al Hydrox/Mg Hydrox/Simethicone (Aluminum/Magnesium Susp 30 Ml Udc) 30 ml PO Q6H PRN PRN Reason: Dyspepsia Stop: 02/16/22 11:36 Atropine Sulfate (Atropine Sulfate 0.1 Mg/Ml 10ml Syr) 0.5 mg IV Q1M PRN PRN Reason: PACU Use-HR<40 &/or Bradycardi Stop: 01/17/22 15:05 Bisacodyl (Bisacodyl 10 Mg Supp) 10 mg MT DAILY PRN PRN Reason: Constipation Stop: 02/16/22 11:36 Carvedilol (Carvedilol 3.125 Mg Tab) 3.125 mg PO BID ONEL Stop: 02/16/22 20:59 Celecoxib (Celebrex 200 Mg Cap) 200 mg PO PREOP ONEL Stop: 01/17/22 18:00 Last Admin: 01/17/22 06:47 Dose: 200 mg Documented by: Dextrose (Dextrose 50% 50 Ml Syringe) 25 - 50 ml IV UD PRN; Protocol PRN Reason: Hypoglycemia Protocol Stop: 02/16/22 12:29 Diphenhydramine HCl (Diphenhydramine Capsule 25 Mg Cap) mg PO HS NOEL Stop: 02/16/22 20:59 Diphenhydramine HCl (Diphenhydramine Capsule 25 Mg Cap) 25 mg PO Q6H PRN PRN Reason: Allergic Rhinitis/Insomnia Stop: 02/16/22 11:36 Ephedrine Sulfate (Ephedrine Sulfate 50 Mg/Ml Amp) 5 mg IV Q5M PRN PRN Reason: PACU Use Only-SBP<90 mmHg Stop: 01/17/22 15:05 Famotidine (Famotidine 20 Mg Tab) 20 mg PO Q12H PRN PRN Reason: Dyspepsia Stop: 02/16/22 11:36 Fentanyl Citrate (Fentanyl Citrate 100 Mcg/2 Ml Vial) 50 mcg IV Q5M PRN PRN Reason: PACU Use Only-Pain Stop: 01/17/22 15:06 Gabapentin (Gabapentin 300 Mg Cap) 300 mg PO PREOP ONEL Stop: 01/17/22 18:00 Last Admin: 01/17/22 06:47 Dose: 300 mg Documented by: Glucagon (Glucagon For Inj 1 Mg Vial) 1 mg IM UD PRN; Protocol PRN Reason: Hypoglycemia Protocol Stop: 02/16/22 12:29 Glucose (Glucose 40% Gel 15 Gm Tube) 15 - 30 gm PO UD PRN; Protocol PRN Reason: Hypoglycemia Protocol Stop: 02/16/22 12:29 Glucose (Glucose 10 Tabs/Tube) 4 - 8 tabs PO UD PRN; Protocol PRN Reason: Hypoglycemia Protocol Stop: 02/16/22 12:29 Hydrochlorothiazide (Hydrochlorothiazide 25 Mg Tab) 25 mg PO QAM ONEL Stop: 02/17/22 08:59 Hydromorphone HCl (Hydromorphone Inj 1 Mg/Ml Syringe) 0.25 mg IV Q5M PRN PRN Reason: PACU Use Only-Pain Stop: 01/17/22 15:06 Hydromorphone HCl (Hydromorphone Inj 0.5 Mg/0.5 Ml Syr) 0.5 mg IV Q3H PRN PRN Reason: MODERATE Pain (Scale 4,5,6) & Pre PT Stop: 01/31/22 11:36 Hydromorphone HCl (Hydromorphone Inj 1 Mg/Ml Syringe) 1 mg IV Q3H PRN PRN Reason: SEVERE Pain (Scale 7,8,9,10) Stop: 01/31/22 11:36 Hydroxyzine HCl (Hydroxyzine Hcl 25 Mg Tab) 25 mg PO Q8H PRN PRN Reason: Anxiety Stop: 02/16/22 11:36 Lactated Ringer's (Lr) 1,000 mls @ 15 mls/hr IV .Q24H [facility] Stop: 01/18/22 05:59 Last Infusion: 01/17/22 07:42 Dose: Infused Documented by: Clindamycin Phosphate (Cleocin) 600 mg in 54 mls @ 100 mls/hr IV PREOP ONEL Stop: 01/18/22 05:59 Last Admin: 01/17/22 07:42 Dose: 100 mls/hr Documented by: Clindamycin Phosphate 600 mg/ (Dextrose) 54 mls @ 100 mls/hr IV Q8H [facility] Stop: 01/18/22 00:18 Sodium Chloride (Nss 1000ml) 1,000 mls @ 100 mls/hr IV .Q10H [facility] Stop: 02/16/22 11:36 Promethazine HCl 12.5 mg/ (Sodium Chloride) 50.5 mls @ 202 mls/hr IV Q6H PRN PRN Reason: Nausea &/or Vomiting Stop: 02/16/22 11:36 Acetaminophen (Ofirmev) 1,000 mg in 100 mls @ 400 mls/hr IV Q8H PRN PRN Reason: Pain Rating 1-3 & Pre PT Stop: 01/20/22 11:36 Dexamethasone 6 mg/ Syringe 1.5 mls @ 1 mls/min IV DAILY [facility] Stop: 01/20/22 09:02 Influenza Virus Vaccine Quadrival (Do Not Administer Flu Vaccine) 1 ea N/A PRN PRN PRN Reason: Notification Stop: 02/16/22 11:36 Insulin Aspart (Insulin Aspart Per Unit) 0 units SC ACHS [facility]; Protocol Stop: 02/16/22 12:29 Insulin Aspart (Insulin Aspart Per Unit) 0 units SC ONE ONE; Protocol Stop: 01/18/22 00:01 Insulin Human NPH (Insulin Human Nph) 20 units SC QDB [facility]; Protocol Stop: 01/20/22 07:31 Lisinopril (Lisinopril 40 Mg Tab) [facility] [place] Stop: 02/17/22 08:59 Lorazepam (Lorazepam 0.5 Mg Tab) 0.5 mg PO Q8H PRN PRN Reason: Sedation/Anxiety Stop: 02/16/22 11:36 Lorazepam (Lorazepam 2 Mg/1 Ml Vial) 0.5 mg IV Q8H PRN PRN Reason: Sedation/Anxiety Stop: 02/16/22 11:36 Magnesium Hydroxide (Magnesium Hydroxide Susp 30 Ml Udc) 30 ml PO Q24H PRN PRN Reason: Constipation Stop: 02/16/22 11:36 Metoclopramide HCl (Metoclopramide Hcl Inj 5 Mg/Ml 2 Ml Vial) 10 mg IV Q6H PRN PRN Reason: Nausea &/or Vomiting Stop: 02/16/22 11:36 Miscellaneous (Check Scopolamine Patch Placement) 1 ea N/A QS ONEL Stop: 01/20/22 05:59 Miscellaneous (Remove Transderm-Scop Patch) 1 ea N/A ONE ONE Stop: 01/20/22 06:01 Miscellaneous (Carbohydrates For Hypoglycemia ) 15 - 30 gm PO UD PRN PRN Reason: Hypoglycemia Treatment Stop: 02/16/22 12:29 Miscellaneous Information (Pharmacy Glycemic Mgmt Consult) 1 ea N/A UD PRN PRN Reason: Consult Stop: 02/16/22 11:36 Naloxone HCl (Naloxone Hcl 0.4 Mg/1 Ml Vial/Carp) 0.1 mg IV Q5M PRN PRN Reason: Oversedation/Resp depression Stop: 02/16/22 11:36 Non-Formulary Medication (Ascorbic Acid (Vitamin C) [Vitamin C]) 1 gm PO QAM [facility] Stop: 02/17/22 08:59 Non-Formulary Medication (Ferrous Sulfate [Iron]) 1 tab PO QAM [facility] Stop: 02/17/22 08:59 Non-Formulary Medication (Levothyroxine) 75 mcg PO QAM [facility] Stop: 02/17/22 08:59 Non-Formulary Medication (Omeprazole) 20 mg PO QPM ONEL Stop: 02/16/22 20:59 Non-Formulary Medication (Vitamin B Complex) 1 tab PO QAM ONEL Stop: 02/17/22 08:59 Ondansetron HCl (Ondansetron Inj 2 Mg/Ml 2 Ml Vial) 4 mg IV ONCE PRN PRN Reason: PACU Use Only-Nausea/Vomiting Stop: 01/17/22 15:06 Ondansetron HCl (Ondansetron Inj 2 Mg/Ml 2 Ml Vial) 4 mg IV Q6H PRN PRN Reason: Nausea &/or Vomiting Stop: 02/16/22 11:36 Ondansetron HCl (Ondansetron 4 Mg Od Tab) 4 mg PO Q6H PRN PRN Reason: Nausea Stop: 02/16/22 11:36 Pneumococcal Polyvalent Vaccine (Do Not Administer Pneumococcal Vaccine) 1 ea N/A PRN PRN PRN Reason: Notification Stop: 02/16/22 11:36 Polyethylene Glycol (Polyethylene (Miralax) 17 Gm Pack) 17 gm PO Q6 ONEL Stop: 02/17/22 05:59 Senna/Docusate Sodium (Docusate Sodium/Senna 50/8.6mg Tab) 2 tab PO HS ONEL Stop: 02/16/22 20:59 Simvastatin (Simvastatin 20 Mg Tab) 20 mg PO PM ONEL Stop: 02/16/22 20:59 Sodium Biphosphate/Sodium Phosphate (Sod Phosphate/Sod Biphosphate Enema 132 Ml Btl) 132 ml MT ONE PRN PRN Reason: Constipation Stop: 02/16/22 11:36 Tramadol HCl (Tramadol Hcl 50 Mg Tablet) 50 - 100 mg PO Q4H PRN PRN Reason: Moderate-Severe pain & Pre PT Stop: 02/16/22 11:36 Vitamin D (Cholecalciferol 1,000 Units 25 Mcg Tab) units PO QAM ONEL Stop: 02/17/22 08:59 PG Care Time/CCT Total # of Minutes Spent Total Time Spent with Patient: Total time spent is greater than 50% in coordination of care (as documented) at patient's floor/unit and/or counseling patient: 34 Coding Level of Care Code 85385 Inpt Consult Level 4 Diagnoses Neurogenic claudication due to lumbar spinal stenosis M48.062 S/P lumbar fusion Z98.1 HTN (hypertension) I10 HLD (hyperlipidemia) E78.5 T2DM (type 2 diabetes mellitus) E11.9 Bicuspid aortic valve Q23.1 CKD (chronic kidney disease) stage 3, GFR 30-59 ml/min N18.3 Time Spent (min) 56
[2022-01-17] MEDS ORDERED: GLUCAGON FOR INJ 1 MG VIAL IM PRN (12:30)
[2022-01-17] MEDS ORDERED: GLUCOSE 10 TABS/TUBE PO PRN (12:30)
[2022-01-17] MEDS ORDERED: GLUCOSE 40% GEL 15 GM TUBE PO PRN (12:30)
[2022-01-17] MEDS ORDERED: CARBOHYDRATES FOR HYPOGLYCEMIA PO PRN (12:30)
[2022-01-17] MEDS ORDERED: DEXTROSE 50% 50 ML SYRINGE IV PRN (12:30)
--- NOTE | 2022-01-17 12:33 | Anesthesiology Progress Note ---
Date of Service January 17, 2022 Anesthesia Post Procedure Vital Signs Vital Signs: Temp Pulse Pulse Resp BP BP Pulse Ox 01/17/22 12:04 97.5 F L 71 16 117/76 94 01/17/22 11:35 97.7 F 71 16 110/71 91 01/17/22 10:56 97.7 F 76 113/75 92 01/17/22 10:45 76 18 111/78 97 01/17/22 10:35 97.5 F L 81 18 110/80 97 01/17/22 10:25 78 12 111/72 98 01/17/22 10:15 78 12 114/73 99 01/17/22 10:05 80 14 112/73 99 01/17/22 09:55 97.3 F L 83 14 132/74 96 01/17/22 06:40 98.6 F 64 20 140/94 96 Pain Intensity Back: Pain Intensity: 8 Transfer of Care Handoff Completed per policy Notes Mental Status: alert / awake / arousable and participated in evaluation Patient Amnestic to Procedure: Yes Nausea / Vomiting: adequately controlled Pain: adequately controlled Airway Patency, RR, SpO2: stable & adequate BP & HR: stable & adequate Hydration State: stable & adequate Anesthetic Complications: no major complications apparent and Pt Satisfied with anesthetic care
[2022-01-17] MEDS: SODIUM CHLORIDE 0.9% 1000ML 1,000 ML IV SCH (12:56)
[2022-01-17] MEDS: INSULIN ASPART PER UNIT SC SCH ×3 (13:33→21:47)
[2022-01-17] MEDS: INSULIN HUMAN NPH SC SCH (13:33)
--- NOTE | 2022-01-17 14:26 | Pharmacy Report ---
Pharmacy Glycemic Short Note 2 - Date of Service January 17, 2022 - Glycemic Short BSG Results (Last 24 hours): 01/17/22 01/17/22 01/17/22 06:32 09:57 12:31 POC Glucose 112 H 146 H 161 H OUTPATIENT ANTIDIABETIC REGIMEN: * Glipizide ER 2.5 mg PO BIDM * Metformin ER 500 mg PO BIDM * Ozempic 0.25 mg SQ every Sunday * HbA1c = 6.7% (12/27/21) ASSESSMENT: * 76 yo admitted post-operatively s/p spinal decompression and fusion. Pharmacy was consulted to assist with inpatient glycemic management. Type 2 diabetic as an outpatient which is well controlled. * Ordered a clear liquid diet post-op. Did received 8 mg of IV Dexamethasone perioperatively. Now to receive 6 mg of IV Dexamethasone daily x 3 days starting the morning of 01/18/22. * Per ADA recommendations, will hold outpatient oral diabetes medications. Targeting a goal BSG range of 110-140 mg/dL to promote wound healing and prevent postoperative infection. * Novolog will be started based on weight and stress of three given steroid use. One overnight check will be added for first evening of inpatient stay. Also, will utilize NPH to help with steroid-induced hyperglycemia. PLAN FOR INPATIENT GLYCEMIC CONTROL: * Hold outpatient oral diabetes medications * Basal insulin * NPH 20 units SQ daily - give with dexamethasone (hold if dexamethasone held or discontinued) * Bolus insulin * NovoLog per scale ACHS or Q6hrs while NPO * Goal Range: Low 110 mg/dL - High 140 mg/dL * Correction Factor: 20 mg/dL/unit * Nutritional / Prandial insulin per carb ratio of 1 unit per 7 grams CHO consumed PLAN FOR DISCHARGE: * HbA1c of 6.7% is at goal for this patient. * May resume outpatient regimen upon discharge as long as patient is not experiencing any hypoglycemia.
[2022-01-17] MEDS: CLINDAMYCIN 600 MG in DEXTROSE 5% 50 ML IV SCH (15:12)
[2022-01-17] MEDS: CHECK SCOPOLAMINE PATCH PLACEMENT SCH (15:12)
[2022-01-17] MEDS: traMADol HCL 50 MG TABLET PO PRN ×2 (15:22→21:21)
[2022-01-17] MEDS ORDERED: INSULIN ASPART PER UNIT SC SCH (16:30)
[2022-01-17] MEDS ORDERED: COUGH DROP (SUGAR FREE) LOZ 24 LOZ/1 BOX BUCCAL PRN (17:47)
[2022-01-17] MEDS: HYDROmorphone INJ 1 MG/ML SYRINGE IV PRN (17:50)
[2022-01-17] MEDS ORDERED: glipiZIDE ER 2.5 MG TABCR PO SCH (21:00)
[2022-01-17] MEDS: SIMVASTATIN 20 MG TAB PO SCH (21:17)
[2022-01-17] MEDS: DOCUSATE SODIUM/SENNA 50/8.6MG TAB PO SCH (21:17)
[2022-01-17] MEDS: carvediloL 3.125 MG TAB PO SCH (21:17)
[2022-01-17] MEDS: diphenhydrAMINE Capsule 25 MG CAP PO SCH (21:17)
[2022-01-17] MEDS: PANTOprazole 40 MG TAB PO SCH (21:18)
[2022-01-18] MEDS ORDERED: INSULIN ASPART PER UNIT SC ONE
[2022-01-18] MEDS: SODIUM CHLORIDE 0.9% 1000ML 1,000 ML IV SCH (00:06)
[2022-01-18] MEDS: CLINDAMYCIN 600 MG in DEXTROSE 5% 50 ML IV SCH (00:06)
[2022-01-18] MEDS: CHECK SCOPOLAMINE PATCH PLACEMENT SCH ×4 (00:12→22:33)
[2022-01-18] MEDS: LEVOTHYROXINE SODIUM 75 MCG TABLET PO SCH (04:25)
[2022-01-18] MEDS: POLYETHYLENE (MIRALAX) 17 GM PACK PO SCH ×4 (04:25→22:33)
[2022-01-18] MEDS: traMADol HCL 50 MG TABLET PO PRN ×2 (05:43→10:47)
[2022-01-18 06:50] LABS: Basophils # (auto) 0.01 K/uL (0-0.2); Basophils % (auto) 0.1 %; Hematocrit (blood only) 38.2 % (42-52); Hemoglobin 12.7 g/dL (14.0-18.0); Immature Granulocytes # (auto) 0.03 K/uL (0.00-0.02); Immature Granulocytes % (auto) 0.2 %; Lymphocytes # (auto) 0.97 K/uL (1.2-3.4); Mean Corpuscular Hemoglobin 31.4 pg (25-34); Mean Corpuscular Hgb Conc 33.2 g/dL (32-36); Mean Corpuscular Volume 94.3 fL (80-100); Mean Platelet Volume 10.6 fL (7.4-10.4); Monocytes # (auto) 1.37 K/uL (0.11-0.59); Monocytes % (auto) 8.5 %; Neutrophils # (auto) 13.68 K/uL (1.4-6.5); Neutrophils % (auto) 85.2 %; Platelet Count 270 K/uL (130-400); RDW Coefficient of Variation 13.2 % (11.5-14.5); RDW Standard Deviation 45.8 fL (36.4-46.3); Red Blood Count 4.05 M/uL (4.7-6.1); White Blood Count 16.06 K/uL (4.8-10.8)
[2022-01-18 07:32] LABS: Calcium 7.6 mg/dl (8.5-10.1); Creatinine Clr Calc Pharmacy 42.2 ml/min; Est GFR (African American) 47.4 ml/min; Est GFR (Non-African American) 40.9 ml/min
[2022-01-18] MEDS: hydroCHLOROthiazide 25 MG TAB PO SCH (08:15)
[2022-01-18] MEDS: VITAMIN B COMPLEX TAB PO SCH (08:15)
[2022-01-18] MEDS: ASCORBIC ACID 500 MG TAB PO SCH (08:15)
[2022-01-18] MEDS: dexAMETHasone 6 MG in SYRINGE 0 ML IV SCH (08:15)
[2022-01-18] MEDS: CHOLECALCIFEROL 1,000 UNITS 25 MCG TAB PO SCH (08:15)
[2022-01-18] MEDS: lisinopril 40 MG TAB PO SCH (08:16)
[2022-01-18] MEDS: FERROUS SULFATE 325 MG TAB PO SCH (08:16)
[2022-01-18] MEDS: carvediloL 3.125 MG TAB PO SCH ×2 (08:17→21:19)
[2022-01-18] MEDS: INSULIN HUMAN NPH SC SCH (08:50)
[2022-01-18] MEDS: INSULIN ASPART PER UNIT SC SCH ×4 (08:53→21:14)
[2022-01-18] MEDS ORDERED: SODIUM CHLORIDE 0.9% 1000ML 1,000 ML IV SCH (09:00)
--- NOTE | 2022-01-18 14:09 | Orthopedic Progress Note ---
Date of Service January 18, 2022 Assessment & Plan (1) Neurogenic claudication due to lumbar spinal stenosis: Plan: We will continue physical therapy monitor his YINA output anticipate discharge home in the next few days. Admission and Anticipated Discharge Date Admission Date: January 17, 2022 Subjective Back pain controlled leg pain markedly improved Physical Exam Physical Exam: Patient is in a chair at the bedside. He is comfortable. Is good strength testing. Results & Data ([facility]) Vital Signs (Past 12 Hours) Vital Signs Temp Pulse Resp BP Pulse Ox 01/18/22 07:55 36.6 C 60 16 122/76 93 01/18/22 04:00 36.6 C 62 18 115/73 97
[2022-01-18] MEDS: HYDROmorphone INJ 1 MG/ML SYRINGE IV PRN (14:52)
--- NOTE | 2022-01-18 15:08 | Hospitalist Progress Note ---
Date of Service January 18, 2022 Assessment & Plan (1) Neurogenic claudication due to lumbar spinal stenosis: Plan: 01/17/22 T12-L3 Decompression and Fusion, Spinal Cord Monitoring L2-L3 Hardware Removal Surgeon: Emmett Abdalla (2) S/P lumbar fusion: Plan: Mr. Parekh is a 76 year old male with a history of Hypertension, Hyperlipidemia, Type 2 DM, Stage 3 CKD, Hypothyroidism, Prostate Cancer s/p Prostatectomy, RBBB, Functionally Bicuspid Aortic Valve, Mild AI, Mild PI, and Lumbar Spinal Stenosis who POD#0 from a T12 to L3 decompression and fusion with Dr. Abdalla. No surgical or anesthetic complications reported. He complains of surgical back pain at the present time -- rating it at an 8/10. He denies any radicular pain in his legs. Surgical drain is in place. He is hemodynamically stable at this time and he is otherwise asymptomatic. -- Opiate analgesics as needed for pain control. -- Tramadol 50 to 100 mg every 4 hours as needed. -- Dexamethasone IV 6 mg daily. -- DVT prophylaxis. -- TEDS stockings, SCD's. -- CBC with diff, BMP in the morning. -- Physical therapy has been ordered. -- Ambulation as tolerated. (3) HTN (hypertension): Plan: BP appears to be controlled. -- Continue Coreg 3.125 mg b.i.d.. -- Resume Lisinopril 40 mg in the morning if BP allows. (4) HLD (hyperlipidemia): Plan: -- Continue Simvastatin 20 mg daily. (5) T2DM (type 2 diabetes mellitus): Plan: Type 2 DM, blood glucose is acceptable given steroids -- Hold Metformin. -- Hold Ozempic. -- BSG qAC and HS. -- Sliding scale insulin coverage. (6) Bicuspid aortic valve: Plan: Functionally Bicuspid Aortic Valve on Echocardiogram 2017 showed Normal LV systolic function, LVEF 50% to 55% with Mild AI, Mild PI, Trace MR, Trace TR. Aortic root is enlarged, ascending aorta measures 4.0 cm. Patient's last Stress Echocardiogram was performed in 2019. He exercised for 6 minutes on standard Hiro protocol attaining a 7 MET workload and 81% MPHR. No exercised induced chest discomfort. No evidence of myocardial ischemia by echo criteria. -- Continue to follow with Dr Glen, continue surveillance echocardiograms antoni odically. (7) CKD (chronic kidney disease) stage 3, GFR 30-59 ml/min: Plan: --CARLOS on CKD, additional hydration is offered -- Avoid nephrotoxic drugs. -- Avoid dehydration. Admission and Anticipated Discharge Date Admission Date: January 17, 2022 Subjective pt is feeling well no active issues YNIA drain is still with seroanguinous discharge Review of Systems Review of Systems: Mild distress and fatigue no headache, no visual changes no speech or swallowing issues no chest pain, pressure or palpitations no shortness of breath, cough or wheezes no abdominal pain, nausea or vomiting, diarrhea or constipation no dysuria, hematuria or frequency no focal joint pain or swelling focal back pain but improved radicular leg pain YINA drain still with serosanguineous drainage no focal signs of weakness or numbness or altered sensation no complaints of anxiety or depression.. Physical Exam Physical Exam: The patient appeared well nourished and normally developed. Vital signs as documented. Head exam is normocephalic atraumatic Neck is without JVD, thyromegaly, or carotid bruits. Lungs are clear to auscultation, no focal loss of breath sounds Cardiac exam, Rhythm is regular.. No murmurs, rubs or gallops. Abdominal exam reveals normal bowel sounds, soft non tender, no masses Extremities are nonedematous and both pedal pulses are present Neurologic exam is alert and oriented, no focal loss of strength or sensation Psychologically is without concerns for anxiety or depression.. Results & Data Results & Data ([facility]) Vital Signs (Past 12 Hours) Vital Signs Temp Pulse Resp BP Pulse Ox 01/18/22 07:55 97.9 F 60 16 122/76 93 01/18/22 04:00 97.9 F 62 18 115/73 97 PG Care Time/CCT Total # of Minutes Spent Total Time Spent with Patient: Total time spent is greater than 50% in coordination of care (as documented) at patient's floor/unit and/or counseling patient: Coding Level of Care Code 72862 Subseq Hosp Care Lvl 2 Diagnoses Neurogenic claudication due to lumbar spinal stenosis M48.062 S/P lumbar fusion Z98.1 HTN (hypertension) I10 HLD (hyperlipidemia) E78.5 T2DM (type 2 diabetes mellitus) E11.9 Bicuspid aortic valve Q23.1 CKD (chronic kidney disease) stage 3, GFR 30-59 ml/min N18.3
[2022-01-18] MEDS: DOCUSATE SODIUM/SENNA 50/8.6MG TAB PO SCH (21:15)
[2022-01-18] MEDS: diphenhydrAMINE Capsule 25 MG CAP PO SCH (21:15)
[2022-01-18] MEDS: SIMVASTATIN 20 MG TAB PO SCH (21:16)
[2022-01-18] MEDS: PANTOprazole 40 MG TAB PO SCH (21:16)
[2022-01-19] MEDS: POLYETHYLENE (MIRALAX) 17 GM PACK PO SCH ×4 (05:44→23:09)
[2022-01-19] MEDS: LEVOTHYROXINE SODIUM 75 MCG TABLET PO SCH (05:44)
[2022-01-19] MEDS: CHECK SCOPOLAMINE PATCH PLACEMENT SCH ×3 (08:14→23:08)
[2022-01-19] MEDS: carvediloL 3.125 MG TAB PO SCH ×2 (08:22→21:47)
[2022-01-19] MEDS: hydroCHLOROthiazide 25 MG TAB PO SCH (08:22)
[2022-01-19] MEDS: CHOLECALCIFEROL 1,000 UNITS 25 MCG TAB PO SCH (08:23)
[2022-01-19] MEDS: lisinopril 40 MG TAB PO SCH (08:23)
[2022-01-19] MEDS: VITAMIN B COMPLEX TAB PO SCH (08:23)
[2022-01-19] MEDS: dexAMETHasone 6 MG in SYRINGE 0 ML IV SCH (08:24)
[2022-01-19] MEDS: INSULIN HUMAN NPH SC SCH (08:30)
[2022-01-19] MEDS: INSULIN ASPART PER UNIT SC SCH ×4 (08:37→21:47)
--- NOTE | 2022-01-19 08:58 | Orthopedic Progress Note ---
Date of Service January 19, 2022 Assessment & Plan (1) S/P lumbar fusion: Plan: Patient will continue with ambulation and physical therapy today. Continue with aggressive bowel regimen. Maintain YINA drain. Continue with pain control. Anticipate discharge home tomorrow. Admission and Anticipated Discharge Date Admission Date: January 17, 2022 Olga Burch is postoperative day 2 T12-L3 decompression instrumented fusion. He feels great. He is passing flatus but no bowel movement yet. YINA drain output last shift was 30 cc. Yesterday in physical therapy ambulating roughly 150 feet. No new complaints. Review of Systems Review of Systems: All systems reviewed & are unremarkable except as noted in HPI & below Physical Exam Physical Exam: He sitting in his chair eating breakfast Alert and oriented x3 No acute distress Lumbar dressing is clean dry and intact with functioning YINA drain Strength is intact bilateral lower extremities Calves are soft nontender bilateral lower extremities Results & Data ([facility]) Vital Signs (Past 12 Hours) Vital Signs Temp Pulse Pulse Resp BP Pulse Ox 01/19/22 07:13 36.9 C 64 18 139/85 96 01/18/22 22:16 36.5 C 58 L 18 120/77 95 01/18/22 21:16 58 L 120/77
[2022-01-19] MEDS: FERROUS SULFATE 325 MG TAB PO SCH (12:18)
[2022-01-19] MEDS: ASCORBIC ACID 500 MG TAB PO SCH (12:18)
--- NOTE | 2022-01-19 14:42 | Hospitalist Progress Note ---
Date of Service January 19, 2022 Assessment & Plan (1) Neurogenic claudication due to lumbar spinal stenosis: Plan: 01/17/22 T12-L3 Decompression and Fusion, Spinal Cord Monitoring L2-L3 Hardware Removal Surgeon: Emmett Abdalla. Postoperative day #2 (2) S/P lumbar fusion: Plan: Mr. Parekh is a 76 year old male with a history of Hypertension, Hyperlipidemia, Type 2 DM, Stage 3 CKD, Hypothyroidism, Prostate Cancer s/p Prostatectomy, RBBB, Functionally Bicuspid Aortic Valve, Mild AI, Mild PI, and Lumbar Spinal Stenosis who POD#0 from a T12 to L3 decompression and fusion with Dr. Abdalla. No surgical or anesthetic complications reported. He complains of surgical back pain at the present time -- rating it at an 8/10. He denies any radicular pain in his legs. Surgical drain is in place. He is hemodynamically stable at this time and he is otherwise asymptomatic. -- Opiate analgesics as needed for pain control. -- Tramadol 50 to 100 mg every 4 hours as needed. -- Dexamethasone IV 6 mg daily. -- DVT prophylaxis. -- TEDS stockings, SCD's. -- CBC with diff, BMP in the morning. -- Physical therapy has been ordered. -- Ambulation as tolerated. (3) HTN (hypertension): Plan: BP appears to be controlled. -- Continue Coreg 3.125 mg b.i.d.. -- Lisinopril 40 mg daily . (4) HLD (hyperlipidemia): Plan: -- Continue Simvastatin 20 mg daily. (5) T2DM (type 2 diabetes mellitus): Plan: Type 2 DM, blood glucose is acceptable given steroids -- Hold Metformin. -- Hold Ozempic. -- BSG qAC and HS. -- Sliding scale insulin coverage. ADA diet (6) Bicuspid aortic valve: Plan: Functionally Bicuspid Aortic Valve on Echocardiogram 2017 showed Normal LV systolic function, LVEF 50% to 55% with Mild AI, Mild PI, Trace MR, Trace TR. Aortic root is enlarged, ascending aorta measures 4.0 cm. Patient's last Stress Echocardiogram was performed in 2019. He exercised for 6 minutes on standard Hiro protocol attaining a 7 MET workload and 81% MPHR. No exercised induced chest discomfort. No evidence of myocardial ischemia by echo criteria. -- Continue to follow with Dr Glen, continue surveillance echocardiograms periodically. (7) CKD (chronic kidney disease) stage 3, GFR 30-59 ml/min: Plan: --CARLOS on CKD, additional hydration is offered -- Avoid nephrotoxic drugs. -- Avoid dehydration. Plan: Disposition: Anticipate discharge to home tomorrow January 20 by primary service Admission and Anticipated Discharge Date Admission Date: January 17, 2022 Subjective Alert and oriented. No acute distress. Orthopedic surgery entry noted. Probable discharge to home tomorrowJanuary 20 Review of Systems Review of Systems: Constitutional-no fever or chills ENT-no blurred vision, no double vision, no epistaxis, no sore throat Respiratory-no cough, no wheezing, no shortness of breath Cardiac-no palpitations, no chest pain, no syncope GI-no nausea, vomiting, diarrhea, melena, hematochezia -no urinary retention, no urinary incontinence, no dysuria, no hematuria Musculoskeletal-no joint pain, no muscle tenderness Skin-no bruising, no rashes, no pruritus Neuro-no isolated weakness, no paresthesia, no weakness Psych-no depression, no anxiety Physical Exam Physical Exam: General-alert and oriented x3, no fevers, no chills HEENT-head atraumatic and normocephalic, TMs intact bilaterally, pupils equal and reactive to light, extraocular muscles intact Neck-no lymphadenopathy or thyromegaly, trachea midline Chest-clear to auscultation percussion. No rales wheezing or rhonchi Cardiac-regular rate and rhythm, normal S1 and S2, no murmurs Abdomen-normal bowel sounds, nontender, no hepatosplenomegaly Extremities-no cyanosis, clubbing, or edema Neuro-cranial nerves II through XII intact, motor and sensory function within normal limits, strength symmetrical 5/5, no focal deficits Psych-normal affect, normal mood Results & Data Results & Data ([facility]) Vital Signs (Past 12 Hours) Vital Signs Temp Pulse Resp BP Pulse Ox 01/19/22 14:29 36.3 C L 60 18 147/87 H 97 01/19/22 07:13 36.9 C 64 18 139/85 96 Laboratory Results 01/18/22 06:09 01/18/22 06:09 PG Care Time/CCT Total # of Minutes Spent Total Time Spent with Patient: Total time spent is greater than 50% in coordination of care (as documented) at patient's floor/unit and/or counseling patient: Coding Level of Care Code 46058 Subseq Hosp Care Lvl 3 Diagnoses Neurogenic claudication due to lumbar spinal stenosis M48.062 S/P lumbar fusion Z98.1 HTN (hypertension) I10 HLD (hyperlipidemia) E78.5 T2DM (type 2 diabetes mellitus) E11.9 Bicuspid aortic valve Q23.1 CKD (chronic kidney disease) stage 3, GFR 30-59 ml/min N18.3
--- NOTE | 2022-01-19 14:50 | Pharmacy Report ---
Pharmacy Glycemic Short Note 2 - Date of Service January 19, 2022 - Glycemic Short BSG Results (Last 24 hours): 01/18/22 01/18/22 01/19/22 17:07 20:47 08:01 POC Glucose 160 H 158 H 137 H 01/19/22 11:48 POC Glucose 149 H OUTPATIENT ANTIDIABETIC REGIMEN: * Glipizide ER 2.5 mg PO BIDM * Metformin ER 500 mg PO BIDM * Ozempic 0.25 mg SQ every Sunday * HbA1c = 6.7% (12/27/21) ASSESSMENT: 01/19/22: * Patient received total of 34 units of insulin yesterday; 20 units basal NPH and 14 units bolus. * BSGs yesterday were [phone] mg/dl. * Fasting BSG today was 137 mg/dl. Continued NPH basal the same as yesterday since patient continues on IV Dex 6 mg. Last dose of IV Dex ordered is tomorrow. * Post-prandial BSGs are well controlled. Continued Novolog parameters the same. Background 01/17/22: * 76 yo admitted post-operatively s/p spinal decompression and fusion. Pharmacy was consulted to assist with inpatient glycemic management. Type 2 diabetic as an outpatient which is well controlled. * Ordered a clear liquid diet post-op. Did received 8 mg of IV Dexamethasone perioperatively. Now to receive 6 mg of IV Dexamethasone daily x 3 days starting the morning of 01/18/22. * Per ADA recommendations, will hold outpatient oral diabetes medications. Targeting a goal BSG range of 110-140 mg/dL to promote wound healing and prevent postoperative infection. * Novolog will be started based on weight and stress of three given steroid use. One overnight check will be added for first evening of inpatient stay. Also, will utilize NPH to help with steroid-induced hyperglycemia. PLAN FOR INPATIENT GLYCEMIC CONTROL: * Hold outpatient oral diabetes medications * Basal insulin * NPH 20 units SQ daily - give with dexamethasone (hold if dexamethasone held or discontinued) * Bolus insulin * NovoLog per scale ACHS or Q6hrs while NPO * Goal Range: Low 110 mg/dL - High 140 mg/dL * Correction Factor: 20 mg/dL/unit * Nutritional / Prandial insulin per carb ratio of 1 unit per 7 grams CHO consumed PLAN FOR DISCHARGE: * HbA1c of 6.7% is at goal for this patient. * May resume outpatient regimen upon discharge as long as patient is not experiencing any hypoglycemia.
[2022-01-19] MEDS: ACETAMINOPHEN 500 MG TAB PO PRN (15:09)
[2022-01-19] MEDS: traMADol HCL 50 MG TABLET PO PRN ×2 (15:09→21:52)
[2022-01-19] MEDS: PANTOprazole 40 MG TAB PO SCH (21:48)
[2022-01-19] MEDS: SIMVASTATIN 20 MG TAB PO SCH (21:48)
[2022-01-19] MEDS: DOCUSATE SODIUM/SENNA 50/8.6MG TAB PO SCH (21:48)
[2022-01-19] MEDS: diphenhydrAMINE Capsule 25 MG CAP PO SCH (21:49)
[2022-01-20] MEDS: LEVOTHYROXINE SODIUM 75 MCG TABLET PO SCH (05:10)
[2022-01-20] MEDS: POLYETHYLENE (MIRALAX) 17 GM PACK PO SCH ×2 (05:10→12:29)
[2022-01-20] MEDS: ACETAMINOPHEN 500 MG TAB PO PRN (05:16)
[2022-01-20] MEDS: traMADol HCL 50 MG TABLET PO PRN ×2 (05:17→13:30)
--- NOTE | 2022-01-20 08:19 | Hospitalist Progress Note ---
Date of Service January 20, 2022 Assessment & Plan (1) Neurogenic claudication due to lumbar spinal stenosis: Plan: 01/17/22 T12-L3 Decompression and Fusion, Spinal Cord Monitoring L2-L3 Hardware Removal Surgeon: Emmett Abdalla. Postoperative day #3 (2) S/P lumbar fusion: Plan: Pain adequately controlledto be managed by primary team Meeting therapy goals Has since been discharged (3) HTN (hypertension): Plan: BP appears to be controlled. -- Continue Coreg 3.125 mg b.i.d.. -- Lisinopril 40 mg daily . (4) HLD (hyperlipidemia): Plan: -- Continue Simvastatin 20 mg daily. (5) T2DM (type 2 diabetes mellitus): Plan: Type 2 DM, blood glucose is acceptable given steroids Resume Metformin and Ozempic upon discharge. Did utilize analog for sliding scale and correction dosing while in house (6) Bicuspid aortic valve: Plan: Functionally Bicuspid Aortic Valve on Echocardiogram 2017 showed Normal LV systolic function, LVEF 50% to 55% with Mild AI, Mild PI, Trace MR, Trace TR. Aortic root is enlarged, ascending aorta measures 4.0 cm. Patient's last Stress Echocardiogram was performed in 2019. He exercised for 6 minutes on standard Hiro protocol attaining a 7 MET workload and 81% MPHR. No exercised induced chest discomfort. No evidence of myocardial ischemia by echo criteria. -- Continue to follow with Dr Carroll, continue surveillance echocardiograms periodically. (7) CKD (chronic kidney disease) stage 3, GFR 30-59 ml/min: Plan: --CARLOS on CKD--> creatinine up to 1.6 (likely medication induced) --Treated with IV hydration and creatinine down to 1.3 which is baseline with review of old records Plan: Disposition: Patient is medically hemodynamically stable. He offers no contraindication to proceed with discharge today as planned. Thank you for allowing us to participate in the care of this patient. We will sign off from a medical standpoint but do not hesitate to reconsult should a problem arise Admission and Anticipated Discharge Date Admission Date: January 17, 2022 Supervising Physician Co-Signing Physician Notes Attending Attestation - Chart reviewed, care plan d/w COLE Jon. I agree with the gottlieb components of her documentation. John Leary MD Subjective Patient seen on daily rounds today. Vocalizes no complaints or concerns. Denies fevers, chills, chest pain, shortness of breath, abdominal pain, nausea or vomiting. Pain is adequately controlled. Meeting therapy goals and reported to be discharged by his surgeon today Review of Systems Review of Systems: All systems reviewed and are unremarkable except as noted in HPI and below Denies fevers, chills, headache, nasal congestion, sore throat, cough, chest pain, shortness of breath, palpitations, orthopnea, PND, abdominal pain, nausea, vomiting, diarrhea, constipation, dysuria, hematuria, frequency, back pain, joint pain or swelling, easy bruising or bleeding, skin lesions or rashes. Physical Exam Physical Exam: General: Resting comfortably in his bedside chair. NAD. HEENT: Head is AT/NC. Buccal mucosa is moist and pink Neck: No JVD. Negative hepatojugular reflex Cardiac: RRR without M/G/R Lungs: CTA without W/R/R Abdomen: Normoactive X4. Soft and nontender in all quadrants. Extremities: No peripheral clubbing cyanosis or edema. Surgical dressing dry and intact. Indwelling YINA drain (patient reports to be removed prior to discharge) Neuro: A&O X4. Cranial nerves II through XII are grossly intact. No focal neuro deficits Skin: No obvious skin lesions or rashes Psych: Appropriate affect. Pleasant and cooperative Results & Data Results & Data ([facility]) Vital Signs (Past 12 Hours) Vital Signs Temp Pulse Resp BP Pulse Ox 01/19/22 21:44 36.3 C L 58 L 14 163/89 H 96 Laboratory Results 01/20/22 08:41 01/20/22 08:41 PG Care Time/CCT Total # of Minutes Spent Total Time Spent with Patient: Total time spent is greater than 50% in coordination of care (as documented) at patient's floor/unit and/or counseling patient: Coding Level of Care Code 13318 Inpt Consult Level 3 Diagnoses Neurogenic claudication due to lumbar spinal stenosis M48.062 S/P lumbar fusion Z98.1 HTN (hypertension) I10 HLD (hyperlipidemia) E78.5 T2DM (type 2 diabetes mellitus) E11.9 Bicuspid aortic valve Q23.1 CKD (chronic kidney disease) stage 3, GFR 30-59 ml/min N18.3
[2022-01-20] MEDS: VITAMIN B COMPLEX TAB PO SCH (08:39)
[2022-01-20] MEDS: dexAMETHasone 6 MG in SYRINGE 0 ML IV SCH (08:39)
[2022-01-20] MEDS: hydroCHLOROthiazide 25 MG TAB PO SCH (08:40)
[2022-01-20] MEDS: ASCORBIC ACID 500 MG TAB PO SCH (08:40)
[2022-01-20] MEDS: lisinopril 40 MG TAB PO SCH (08:40)
[2022-01-20] MEDS: carvediloL 3.125 MG TAB PO SCH (08:40)
[2022-01-20] MEDS: FERROUS SULFATE 325 MG TAB PO SCH (08:41)
[2022-01-20] MEDS: CHOLECALCIFEROL 1,000 UNITS 25 MCG TAB PO SCH (08:41)
[2022-01-20] MEDS: INSULIN HUMAN NPH SC SCH (08:42)
[2022-01-20] MEDS: INSULIN ASPART PER UNIT SC SCH ×2 (08:46→12:48)
[2022-01-20] MEDS ORDERED: lisinopril 40 MG TAB PO SCH (09:00)
[2022-01-20 09:10] LABS: Basophils # (auto) 0.03 K/uL (0-0.2); Basophils % (auto) 0.2 %; Eosinophils # (auto) 0.05 K/uL (0-0.5); Eosinophils % (auto) 0.4 %; Hematocrit (blood only) 40.3 % (42-52); Hemoglobin 13.5 g/dL (14.0-18.0); Immature Granulocytes # (auto) 0.08 K/uL (0.00-0.02); Immature Granulocytes % (auto) 0.6 %; Lymphocytes # (auto) 1.99 K/uL (1.2-3.4); Lymphocytes % (auto) 14.4 %; Mean Corpuscular Hemoglobin 31.5 pg (25-34); Mean Corpuscular Hgb Conc 33.5 g/dL (32-36); Mean Corpuscular Volume 93.9 fL (80-100); Mean Platelet Volume 10.7 fL (7.4-10.4); Monocytes # (auto) 2.02 K/uL (0.11-0.59); Monocytes % (auto) 14.6 %; Neutrophils # (auto) 9.65 K/uL (1.4-6.5); Neutrophils % (auto) 69.8 %; Platelet Count 298 K/uL (130-400); RDW Coefficient of Variation 13.5 % (11.5-14.5); RDW Standard Deviation 45.9 fL (36.4-46.3); Red Blood Count 4.29 M/uL (4.7-6.1); White Blood Count 13.82 K/uL (4.8-10.8)
[2022-01-20 09:40] LABS: BUN Creatinine Ratio 20.6 (10-20); Calcium 8.6 mg/dl (8.5-10.1); Creatinine Clr Calc Pharmacy 50.2 ml/min; Est GFR (African American) 58.6 ml/min; Est GFR (Non-African American) 50.5 ml/min; Magnesium 1.7 mg/dl (1.7-2.4); Potassium 4.2 mmol/L (3.5-5.1)
--- NOTE | 2022-01-20 12:06 | Discharge Summary ---
Date of Service January 20, 2022 Admission HPI Per Admitting Provider This is a 76-year-old male presents with chronic persistent back and leg pain after failing course of nonoperative care is here for surgical invention. Principal Diagnosis Lumbar spinal stenosis with neurogenic claudication Discharge Data Allergies Allergy/AdvReac Type Severity Reaction Status Date / Time hydrocodone Allergy Unknown ITCHING Verified 01/17/22 06:33 AND RASH oxycodone Allergy Unknown NAUSEA, Verified 01/17/22 06:33 ITCHING, RASH Penicillins Allergy Unknown per PCP Verified 01/17/22 06:33 note shrimp Allergy Unknown NAUSEA AND Verified 01/17/22 06:33 VOMITING Consultations 01/17/22 11:37 Consult Hospitalist Routine Procedures Performed Operation Date: 01/17/22 07:45 Actual Procedures p T12-L3 Decompression and Fusion, Spinal Cord Monitoring(Not Applicable) - Emmett Abdalla DO s L2-L3 Hardware Removal (Not Applicable) - Emmett Abdalla DO Ordered Studies 01/17/22 07:45 FL lumbar spine 2-3V Routine Hospital Course (1) Neurogenic claudication due to lumbar spinal stenosis: Patient with lower depression fusion trial as well as leg orthopedic floor postoperative. Postop day 1 is up and ambulating progressed to postop day #2 on postop day 3 pain was well controlled YINA drain decreased probably. Subsequent discharge home. Discharge orders instructions from the chart for further review. Total Time Total Time Spent Total Time Spent (In Minutes): 20 minutes Discharge Plan Discharge Items Patient Disposition: Home - Self-Care Reason For Visit: Intervertebral disc disorders with radiculopathy Discharge Diagnosis: Lumbar spinal stenosis with neurogenic claudication Activity: As commented below Non-emergency contact: Primary Care Provider Call non-emergency contact if: you have any medication questions Follow-up/Referrals: Greg Lake D.O. [Primary Care Provider] - Diet: Regular Addtl Attending Provider Instructions: ACTIVITY RECOMMENDATIONS: SELF CARE INSTRUCTIONS AFTER THORACIC/LUMBAR FUSIONS 1. You may walk to your tolerance. It is good exercise for your legs and back. Expect some back and intermittent leg aches and pains. 2. You may perform "counter-top" level activities (make a sandwich, chance with a project, etc.). 3. No bending or lifting of more than 10 pounds or back twisting of any nature (roll like a log when turning in bed). 4. You may ride in a car for 20-30 minutes at a time. No driving until after your first visit with your doctor. 5. Frequent changes of position and restricting sitting to 30 minutes at a time will help limit the amount of back spasms and stiffness you may experience. 6. You may discontinue the use of ambulatory aids (cane, crutches, etc.) once your strength and confidence allow. 7. You may molding press operator the shower and let water strike your incision when you arrive home at least once daily. Do not take a tub bath, sit in a hot tub or go into a swimming pool until after your first recheck in the office. SPECIAL CARE INSTRUCTIONS: VERY IMPORTANT TO READ AND REVIEW A. Your surgical incision has been closed with a cosmetic suture under the skin that will dissolve in about 6 weeks. In 14 days, you can use a pair of clean scissors and cut the suture that is left outside of the skin at the ends of your incision. 1. The small skin tapes can be removed 7 days after surgery if they have not fallen off by that point. 2. You may keep the wound open to air as much as possible to promote healing after post-op day number 5 unless told otherwise by your doctor. 3. If you think the wound looks like it is becoming infected (redness or worsening drainage) and/or you are experiencing fever, chill or worsening back pain and muscle spasms, contact the office so that we may evaluate you as soon as possible. B. Complications are uncommon, but please contact us if you have any signs or symptoms of: 1. wound infection (fever higher than 102.5 degrees F, redness, separation of wound, drainage, or increasing pain from the incision) 2. blood clots in legs (pain, swelling, redness and warmth in legs) 3. urinary tract infection (fever higher than 102.5 degrees F, burning upon urination or increased frequency of urination) 4. nerve problems (inability to walk on your toes or heels, numbness, loss of bowel or bladder control) 5. any other symptoms that concern you C. Please call the office at if you have any concerns or questions about your operation or recovery. D. No smoking! Smoking drastically decreases the chance of a solid fusion. E. Do not take any anti-inflammatory medications (Indocin, Advil, Motrin, Aspirin, Naprosyn, etc.) as these may inhibit the chance of a solid fusion. Tylenol is okay to take for pain. MANAGING PAIN AFTER SPINAL SURGERY 1. Narcotic medication is intended for short-term use and will be provided for surgical pain. Surgical pain usually lasts for a period of 4-6 weeks. Narcotic medication includes Percocet, Vicodin, Darvocet, Tylenol #3 or Lortab. 2. Longer-term pain is more appropriately treated with non-narcotic medication such as Tylenol ES. 3. Muscle spasm is not appropriately treated with narcotics. Muscle relaxers such as Soma, Flexeril or Skelaxin can be used along with Tylenol ES. 4. Remember that we all live with some "aches and pains". This is not unusual or uncommon after an injury or as we get older. a. Back pain is expected and may include muscle spasms for 4 to 6 weeks after surgery. The pain should gradually improve. If the pain worsens for no apparent reason, please contact the office. b. Intermittent leg pain may also be experienced and should not be concerned about unless it worsens for no apparent reason. If so, please contact the office. 5. We will provide appropriate medication within the normal guidelines of their prescribed use. We will also be very cautious and aware of potential abuse and extended duration of patients' medication needs. a. Pain medications are for your comfort and to assist with sleep and rest so that the tissue can heal. They are not provided in order to return to normal activity and should not be used through the day. To do so or worsening pain at night can result from ongoing tissue damage and development of tolerance to the prescribed medicine. 6. Please allow 2-3 days to process refills. Prescriptions will not be mailed but must be picked up at the office. FOLLOW UP VISIT: Keep your scheduled follow-up appointment. Any questions, please call the office at . Pending Studies at Discharge: No Stand-Alone Forms: My [employer], Smoking Cessation Medications and DC Order Prescriptions: New tramadol 50 mg tablet 50 mg PO Q6H PRN (Reason: pain, moderate) Qty: 30 RF: 0 Continued carvedilol 3.125 mg Tablet 3.125 mg PO BID Qty: 0 RF: 0 simvastatin 20 mg Tablet 20 mg PO PM Qty: 0 RF: 0 metformin 1,000 mg Tablet 500 mg PO BID Qty: 0 RF: 0 omeprazole 20 mg Capsule,Delayed Release(Dr/Ec) 20 mg PO QPM Qty: 0 RF: 0 diphenhydramine HCl [Benadryl] 25 mg Capsule 1 cap PO HS Qty: 0 RF: 0 hydrochlorothiazide 25 mg Tablet 25 mg PO QAM Qty: 0 RF: 0 lisinopril 40 mg Tablet 40 mg PO QAM Qty: 0 RF: 0 ascorbic acid (vitamin C) [Vitamin C] 1,000 mg Tablet 1 g PO QAM RF: 0 ferrous sulfate [iron] 325 mg (65 mg iron) Tablet 1 tab PO QAM RF: 0 levothyroxine 25 mcg Capsule 75 mcg PO QAM RF: 0 glipizide 2.5 mg Tablet Extended Release 24 Hr 2.5 mg PO BID RF: 0 Ozempic 0.25 mg or 0.5 mg(2 mg/1.5 mL) Pen Injector 0.25 mg SUBCUT WK RF: 0 tramadol 50 mg Tablet 50 mg PO Q6H PRN (Reason: Pain) RF: 0 methocarbamol 750 mg Tablet 750 mg PO HS RF: 0 vitamin B complex Tablet 1 tab PO QAM RF: 0 cholecalciferol (vitamin D3) [Vitamin D3] 25 mcg (1,000 unit) Capsule 25 mcg PO QAM RF: 0 Discharge Orders: Discharge Order (Routine); Ordered 01/20/22 Ordered By: Emmett Abdalla Admission Data Admit Date/Time: 01/17/22 07:32 Attending Provider: Emmett Abdalla Admit Provider: Emmett Abdalla Primary Care Provider: Greg Lake Other Providers: Braydon Chambers
--- NOTE | 2022-01-25 10:38 | Coding Query ---
CODING QUERY To promote full compliance with coding requirements relating to patient care, provider participation is requested in all cases of ct mri technologist uncertainty. Please assist us with the question(s) below: Please clarify the meaning of CARLOS. CARLOS is not a valid abbreviation. Thank you. ( xx ) Acute Kidney Injury ( ) Acute Kidney Insufficiency ( ) Other (Specify): Principal Diagnosis: "that condition established after study, to be chiefly responsible for occasioning the admission of the patient to the hospital for care." Co-Existing Principal Diagnosis: "when two or more diagnoses equally meet the criteria for principal diagnosis as determined by the circumstances of admission, diagnostic work up, and/or therapy provided, and the Alphabetic Index, Tabular List, or another coding guideline does not provide sequencing direction, any one of the diagnoses may be sequenced first." "When the physician has documented what appears to be a current diagnosis in the body of the record, but has not included the diagnosis in the final diagnostic statement, the physician should be asked whether the diagnosis should be added." ([facility] 2 QTR90. p3-4) [facility]
== END 2022-01-20 14:10 | disposition home or self-care (01) | DRG 454 ==
LOC: ASU 06:07 → 3E 07:32